=== PATIENT | female | born 1980 | race Caucasian/White ===

== ENCOUNTER 2017-01-18 01:41 | Emergency (ER) | payer SELFPAY ==
[~2017-01-18] VITALS: Ht 157.5 cm; Wt 99.5 kg
[2017-01-18 01:51] VITALS: Ht 157.5 cm; Wt 99.5 kg
[2017-01-18] MEDS ORDERED: AMO500 PO (05:42)
[2017-01-18] MEDS ORDERED: IBUP-1542 PO (05:42)
[2017-01-18] MEDS ORDERED: D-ME473S18 PO (05:43)
[2017-01-18 05:55] VITALS: BP 134/72; PULSE 88; RESP 20; TEMP 98.1
--- NOTE | 2017-01-19 15:52 | ERD ---
ER Documentation Chief Complaint Date/Time DATE: 01/19/17 TIME: 15:50 Chief Complaint sore throat x 1 month HPI This patient is a 36-year-old female with no significant medical history presenting to the emergency department for sore throat ongoing intermittently for the past month. Additionally the patient reports bilateral ear pain and mild cough. All symptoms are currently mild. The patient denies fevers, chills , nausea, vomiting, diarrhea, or other symptoms at this time. ROS All systems reviewed and are negative except as per history of present illness. Medications Home Meds Active Scripts Dextromethorphan Hb-Promethazine Hcl (Promethazine DM Syrup) 473 Ml Syrup, 5 ML PO Q6H Y for COUGH, #4 OZ Prov:CALDERON MOORE PA-C 01/18/17 Ibuprofen* (Motrin*) 600 Mg Tab, 600 MG PO Q6, #30 TAB Prov:CALDERON MOORE PA-C 01/18/17 Amoxicillin* (Amoxicillin*) 500 Mg Cap, 500 MG PO BID for 10 Days, CAP Prov:CALDERON MOORE PA-C 01/18/17 Allergies Allergies: Coded Allergies: No Known Allergy (Unverified Allergy, Unknown, 11/24/08) PMhx/Soc History of Surgery: No Anesthesia Reaction: No Hx Neurological Disorder: No Hx Respiratory Disorders: No Hx Cardiac Disorders: No Hx Psychiatric Problems: No Hx Miscellaneous Medical Probl: No Hx Alcohol Use: No Hx Substance Use: No Hx Tobacco Use: No Smoking Status: Never smoker FmHx Noncontributory for chief complaint Physical Exam Vitals Vital Signs Date Time Temp Pulse Resp B/P Pulse Ox O2 Delivery O2 Flow Rate FiO2 01/18/17 05:55 98.1 88 20 134/72 99 Room Air 01/18/17 01:51 97.7 94 20 141/88 99 Physical Exam Const: The patient is resting comfortably in no acute distress. Head: Atraumatic Eyes: Normal Conjunctiva ENT: There is slight tonsillar erythema but no hypertrophy. There is scant exudate present bilaterally. The airway is clear. There is no uvular shift. Neck: Full range of motion..~ No meningismus. Resp: Clear to auscultation bilaterally Cardio: Regular rate and rhythm, no murmurs Abd: Soft, non tender, non distended. Normal bowel sounds Skin: No petechiae or rashes Back: No midline or flank tenderness Ext: No cyanosis, or edema Neur: Awake and alert Psych: Normal Mood and Affect Procedures/MDM 36-year-old female presents secondary to complaints of sore throat. On physical examination the patient's blood pressure slightly elevated which I believe is secondary to acute sickness. Patient's blood pressure was elevated ( >120/80) but appears stable without evidence of hypertension emergency or urgency. The patient was counseled about the risks of hypertension and urged to pursue outpatient monitoring and therapy within a week with their primary care physician. Examination of the throat reveals scant exudate with tonsillar erythema. There is no tonsillar hypertrophy, uvular shift, or obstruction of the airway. I have low suspicion for retropharyngeal abscess, peritonsillar abscess, septicemia, mastoiditis, or other emergent conditions at this time. The patient is stable for outpatient management with prescriptions for amoxicillin, Promethazine DM, and ibuprofen 600 mg. Patient understands and agrees with her discharge plan and diagnosis. All questions and concerns were addressed. The patient was advised to follow-up with her primary care physician but to return here immediately with any new or worsening symptoms. The patient was hemodynamically stable prior to discharge. Departure Diagnosis: Primary Impression: Tonsillitis Additional Impressions: Cough Sore throat Condition: Fair Patient Instructions: Self-Care for Sore Throats Referrals: [facility] YOU HAVE RECEIVED A MEDICAL SCREENING EXAM AND THE RESULTS INDICATE THAT YOU DO NOT HAVE A CONDITION THAT REQUIRES URGENT TREATMENT IN THE EMERGENCY DEPARTMENT. FURTHER EVALUATION AND TREATMENT OF YOUR CONDITION CAN WAIT UNTIL YOU ARE SEEN IN YOUR DOCTORS OFFICE WITHIN THE NEXT 1-2 DAYS. IT IS YOUR RESPONSIBILITY TO MAKE AN APPOINTMENT FOR FOLOW-UP CARE. IF YOU HAVE A PRIMARY DOCTOR --you should call your primary doctor and schedule an appointment IF YOU DO NOT HAVE A PRIMARY DOCTOR YOU CAN CALL OUR PHYSICIAN REFERRAL HOTLINE AT IF YOU CAN NOT AFFORD TO SEE A PHYSICIAN YOU CAN CHOSE FROM THE FOLLOWING [facility] [id number] [facility] [address] [facility] [address] [facility] [address] [facility]. [facility] [address] [facility]. [facility] [address] Additional Instructions: Follow-up with your primary care physician within 1 week. Return to the emergency department immediately should you have any new or worsening symptoms, uncontrolled fevers, or other unexplained symptoms. Take all medications as directed. CALDERON MOORE PA-C Jan 19, 2017 15:52
== END 2017-01-18 05:55 | disposition home or self-care (01) ==
LOC: FTE 01:41
DX: J03.90 Acute tonsillitis, unspecified (principal); R05 Cough
CPT/HCPCS: 99284